=== PATIENT | female | born 1955 | race Caucasian/White ===

== ENCOUNTER → 2022-04-27 | Day surgery (SDC) | payer MEDICARE, MEDICAID ==
[~2022-04-27] VITALS: Ht 160 cm; Wt 98.0 kg
[~2022-04-27] MED LIST: ASCO-339 PO; ASPI-1153 PO; ASPI-1497 PO; ATROPINE SULFATE 0.4MG/ML VIAL IV PRN; CEFAZOLIN SODIUM 1000MG/VIAL ONE; CHOL500010 PO; DEXAMETHASONE 4MG/ML 1ML VIAL ONE; ESOM20CA PO; FAMO40TA7 PO; FENTANYL CITRATE/PF 50MCG/ML 2ML VIAL IV PRN; FENTANYL CITRATE/PF 50MCG/ML 2ML VIAL ONE; HYDROMORPHONE HCL/PF 2MG/ML CPJ IV PRN; KETOROLAC 30MG/ML VIAL ONE; LACTATED RINGERS 1,000 ML IV SCH; LATA7.5D OP; LOSA100T32 PO; LYSI500T11 PO; MAGN400C PO; MIDAZOLAM HCL 2 MG/2 ML VIAL ONE; MULT-1195 PO; OMEG-31 PO; ONDANSETRON HCL 4MG/2ML INJ ONE; PROPOFOL 200MG/20ML VIAL IV ONE
[2022-04-27 06:55] LABS: CLARITY URINE CLEAR (CLEAR); COLOR URINE YELLOW (YELLOW); KETONES URINE NEGATIVE (NEGATIVE); LEUKOCYTE ESTERASE URINE TRACE (NEGATIVE); NITRITE URINE NEGATIVE (NEGATIVE); OCCULT BLOOD URINE TRACE (NEGATIVE); PH URINE 6.5 (4.5-8.0); PROTEIN URINE TRACE (NEGATIVE); SPECIFIC GRAVITY URINE 1.019 (1.005-1.030); UROBILINOGEN URINE 0.2 E.U./dL (0.2-1.0)
[2022-04-27 07:03] LABS: CHLORIDE 105 mEq/L (98-107)
[2022-04-27 07:05] LABS: BASOPHILS % 0.8 % (0.0-2.0); EOSINOPHILS % 2.7 % (0.0-5.0); HEMATOCRIT. 39.5 % (36.0-48.0); HEMOGLOBIN. 13.1 g/dL (12.0-16.0); INR 0.9; LYMPHOCYTES % 29.4 % (20.0-50.0); MEAN CORPUSCULAR VOLUME 89.9 fL (81.0-99.0); MEAN PLATELET VOLUME 6.8 fl (7.4-10.4); MONOCYTES % 6.5 % (2.0-8.0); NEUTROPHILS % 60.6 % (40.0-76.0); PLATELET 414 x1000/uL (130-400); PROTHROMBIN TIME 10.2 sec (9.6-11.0); RED BLOOD CELL COUNT 4.39 mill/uL (4.2-5.4); RED CELL DISTRIBUTION WIDTH 13.1 % (11.6-14.6)
== END | disposition home or self-care (01) ==
LOC: OR 06:24
PROVIDERS: ATTEND Obstetrics & Gynecology Obstetrics
DX: N95.0 Postmenopausal bleeding (principal); N84.0 Polyp of corpus uteri; I10 Essential (primary) hypertension; Z79.899 Other long term (current) drug therapy; Z98.890 Other specified postprocedural states; Z20.822 Contact with and (suspected) exposure to COVID-19; Z82.49 Family history of ischemic heart disease and other diseases of the circulatory system; Z83.3 Family history of diabetes mellitus
CPT/HCPCS: 36415; 58558; 80048; 81003; 85025; 85610; 85730; 87426; 88305; C1758; C9803; J0690; J1100; J1885; J2250; J2405; J2704; J3010